=== PATIENT | male | born 1940 | race Caucasian/White ===

== ENCOUNTER 2017-11-27 17:05 | Inpatient (IN) | payer MEDICARE, BC ==
[~2017-11-27] VITALS: Ht 172.7 cm; Wt 68.8 kg
[~2017-11-27 17:05] MED LIST: ALPR1 PO; ASPI81EC; ASPI81EC PO; ATOR80 PO; CHOL10002 UD; CLON.5; CLON.5 PO; CLON1 PO; CLOP75 PO; CRUTCH2 USE; CRUTCH4 USE; DOCU100 PO; DULO30; DULO60 PO; FAMO20 PO; HYDACE5 PO; HYDMOR2 PO; LANS30EC; LISI10; LISI20 PO; LOSA50 PO; MAGOXI400 PO; METO50ER PO; MINO100 PO; NITR.4SL SL; OMEP40CA12 PO; POLY17UD; PROACE100 PO; SPIHYD; TAMS.4ER; TELM40; TESTOSTERONE INJ; TESTOSTERONE INJECTI; TRAZ50 PO; TRIAZOLAM PO; VENL75ER; ZOLP10; [UNRECOGNIZED DRUG - OTHER]
[2017-11-27 19:17] LABS: BASOPHILS ABSOLUTE AUTO 0.03 K/mm3 (0.00-0.23); BASOPHILS PERCENT AUTO 0 % (0-2); EOSINOPHILS ABSOLUTE AUTO 0.08 K/mm3 (0.00-0.68); EOSINOPHILS PERCENT AUTO 1 % (0-6); Hematocrit 41.2 % (37.0-53.0); Hemoglobin 13.5 g/dL (13.5-17.5); IMMATURE GRAN ABSOLUTE AUTO 0.03 K/mm3 (0.00-0.10); IMMATURE GRAN PERCENT AUTO 0 % (0-1); LYMPHOCYTES ABSOLUTE AUTO 1.63 K/mm3 (0.84-5.20); LYMPHOCYTES PERCENT AUTO 20 % (21-46); MONOCYTES ABSOLUTE AUTO 0.72 K/mm3 (0.16-1.47); MONOCYTES PERCENT AUTO 9 % (4-13); Mean Corpuscular HGB Conc 32.8 g/dL (31.5-36.5); Mean Corpuscular Volume 88 fL (80-100); NEUTROPHILS ABSOLUTE AUTO 5.65 K/mm3 (1.96-9.15); NEUTROPHILS PERCENT AUTO 69 % (41-73); Platelet Count 239 K/mm3 (150-400); RDW Coefficient Variation 13.2 % (11.7-14.2); Red Blood Cell Count 4.66 M/mm3 (4.30-5.90); White Blood Cell Count 8.14 K/mm3 (4.00-11.30)
[2017-11-27 19:33] LABS: Alanine Aminotransfer (ALT/SGP 33 U/L (12-78); Albumin, Blood 3.8 g/dL (3.4-5.0); Albumin/Globulin Ratio 1.2 (0.8-1.8); Alk Phos 89 U/L (50-136); Anion Gap 7 mmol/L (6-16); Aspartate Aminotrans (AST/SGOT 38 U/L (12-37); Bilirubin, Total 0.6 mg/dL (0.1-1.0); Blood Urea Nitrogen 14 mg/dL (8-24); CO2, Blood 28 mmol/L (21-32); Calcium, Blood 8.9 mg/dL (8.5-10.1); Chloride, Blood 101 mmol/L (98-108); Creatinine, Blood 0.82 mg/dL (0.60-1.20); Globulin, Blood 3.1 g/dL (2.2-4.0); Glomerular Filtration Rate >60 (60-); Glucose, Blood 72 mg/dL (70-99); Potassium, Blood 3.8 mmol/L (3.5-5.5); Sodium, Blood 136 mmol/L (136-145); Total Protein, Blood 6.9 g/dL (6.4-8.2)
[2017-11-27 20:17] LABS: International Normalized Ratio 1.04; Prothrombin Time Results 10.8 Sec (9.7-11.5)
[2017-11-27 21:14] LABS: Hematocrit 38.7 % (37.0-53.0); Hemoglobin 12.8 g/dL (13.5-17.5)
[2017-11-28 00:14] LABS: Hematocrit 36.8 % (37.0-53.0)
[2017-11-28] MEDS ORDERED: ASPI81CH PO (01:39)
[2017-11-28] MEDS ORDERED: Prilosec Otc20 MG PO (01:40)
[2017-11-28 03:57] LABS: Hematocrit 33.9 % (37.0-53.0); Hemoglobin 11.3 g/dL (13.5-17.5)
[2017-11-28 09:20] LABS: Hematocrit 34.7 % (37.0-53.0); Hemoglobin 11.4 g/dL (13.5-17.5)
[2017-11-28 14:57] LABS: Hematocrit 34.2 % (37.0-53.0); Hemoglobin 11.2 g/dL (13.5-17.5)
[2017-11-28] MEDS ORDERED: Humalog100 UNIT/3 SC (18:50)
[2017-11-28 20:56] LABS: Hematocrit 30.5 % (37.0-53.0); Hemoglobin 10.1 g/dL (13.5-17.5)
[2017-11-29 06:20] LABS: Hemoglobin 9.5 g/dL (13.5-17.5)
[2017-11-29 09:40] LABS: Hematocrit 32.1 % (37.0-53.0); Hemoglobin 10.4 g/dL (13.5-17.5)
[2017-11-29 11:39] LABS: Hematocrit 31.4 % (37.0-53.0); Hemoglobin 10.1 g/dL (13.5-17.5)
[2017-11-29 16:58] LABS: Hematocrit 31.5 % (37.0-53.0); Hemoglobin 10.3 g/dL (13.5-17.5)
[2017-11-29 22:51] LABS: Hematocrit 32.7 % (37.0-53.0); Hemoglobin 10.7 g/dL (13.5-17.5)
[2017-11-30 05:02] LABS: Hematocrit 28.9 % (37.0-53.0); Hemoglobin 9.4 g/dL (13.5-17.5)
[2017-12-01 05:13] LABS: BASOPHILS ABSOLUTE AUTO 0.02 K/mm3 (0.00-0.23); BASOPHILS PERCENT AUTO 0 % (0-2); EOSINOPHILS ABSOLUTE AUTO 0.12 K/mm3 (0.00-0.68); EOSINOPHILS PERCENT AUTO 2 % (0-6); Hematocrit 29.9 % (37.0-53.0); Hemoglobin 9.8 g/dL (13.5-17.5); IMMATURE GRAN ABSOLUTE AUTO 0.01 K/mm3 (0.00-0.10); IMMATURE GRAN PERCENT AUTO 0 % (0-1); LYMPHOCYTES ABSOLUTE AUTO 1.66 K/mm3 (0.84-5.20); LYMPHOCYTES PERCENT AUTO 30 % (21-46); MONOCYTES ABSOLUTE AUTO 0.68 K/mm3 (0.16-1.47); MONOCYTES PERCENT AUTO 12 % (4-13); Mean Corpuscular HGB 28.8 pg (26.0-34.0); Mean Corpuscular HGB Conc 32.8 g/dL (31.5-36.5); Mean Corpuscular Volume 88 fL (80-100); Mean Platelet Volume 10.9 fL (9.1-12.4); NEUTROPHILS ABSOLUTE AUTO 2.98 K/mm3 (1.96-9.15); NEUTROPHILS PERCENT AUTO 55 % (41-73); Platelet Count 220 K/mm3 (150-400); RDW Coefficient Variation 13.2 % (11.7-14.2); White Blood Cell Count 5.47 K/mm3 (4.00-11.30)
[2017-12-01] MEDS ORDERED: CLOP75 PO (09:54)
[2017-12-01] MEDS ORDERED: DOCU100 (09:55)
[2017-12-01] MEDS ORDERED: LOSA25 PO (09:56)
[2017-12-01] MEDS ORDERED: Depo-Testos200 MG/ML IM (09:57)
[2017-12-01] MEDS ORDERED: Vitamin D2000 UNIT PO (09:58)
[2018-07-04] MEDS ORDERED: Omeprazole20 M1 PO (09:17)
[2018-07-04] MEDS ORDERED: ALLER CLEAR PO (09:17)
[2018-07-04] MEDS ORDERED: MAGOXI400 PO (09:18)
== END 2017-12-01 11:35 | disposition home or self-care (01) | DRG 378 ==
LOC: ER 17:05 → MEDS 17:06 → ICUE 17:06 → MEDS 22:00 → ICUE 23:21 → MEDS 11-29 14:50 → ENPENDDIS 12-01 08:27 → MEDS 12-01 11:35
PROVIDERS: Emergency Medicine; Internal Medicine; Internal Medicine Gastroenterology
PROC: 0DJD8ZZ Inspection of Lower Intestinal Tract, Via Natural or Artificial Opening Endoscopic (ICD-10-PCS; principal; 2017-11-28 17:00)
DX: K57.31 Diverticulosis of large intestine without perforation or abscess with bleeding (principal); I50.30 Unspecified diastolic (congestive) heart failure; I11.0 Hypertensive heart disease with heart failure; I25.10 Atherosclerotic heart disease of native coronary artery without angina pectoris; I25.2 Old myocardial infarction; K64.8 Other hemorrhoids; K21.9 Gastro-esophageal reflux disease without esophagitis; M54.9 Dorsalgia, unspecified; G89.29 Other chronic pain; F41.9 Anxiety disorder, unspecified
CPT/HCPCS: 36415; 80053; 85014; 85018; 85025; 85610; 85730; 86850; 86900; 86901; 93005; 93010; 93798; 99285; C9113; J7030; J7120

== ENCOUNTER → 2019-03-05 | Outpatient (CLI) | payer MEDICARE, BC ==
[~2019-03-05] MED LIST changes: +ALLER CLEAR PO; +ASPI81CH PO; +DOCU100; +Depo-Testos200 MG/ML IM; +Humalog100 UNIT/3 SC; +LOSA25 PO; +Omeprazole20 M1 PO; +Prilosec Otc20 MG PO; +Vitamin D2000 UNIT PO
[2019-03-05 14:24] LABS: Stool Occult Bld Immuno 1 Negative (NEGATIVE)
== END ==
LOC: LAB SHORT 11:28 → LAB 11:28
PROVIDERS: Internal Medicine
DX: Z12.5 Encounter for screening for malignant neoplasm of prostate (principal); N39.0 Urinary tract infection, site not specified
CPT/HCPCS: 82274

== ENCOUNTER 2019-04-26 09:27 | Day surgery (SDC) | payer MEDICARE, BC ==
[~2019-04-26] VITALS: Ht 170.2 cm; Wt 65.1 kg
--- NOTE | 2019-04-26 10:43 | NUR ---
04/26/19 1043 Jasmin Perdomo 11 IV MISS IN RH BY DEVANG VALVE 1 GOOD IV IN RFA BY DEVANG PT TOW
== END 2019-04-26 12:20 | disposition home or self-care (01) ==
LOC: ORSCSDS 09:27
PROVIDERS: Internal Medicine Gastroenterology
PROC: 0DB18ZX Excision of Upper Esophagus, Via Natural or Artificial Opening Endoscopic, Diagnostic (ICD-10-PCS; principal; 2019-04-26 10:45)
PROC: 0D757ZZ Dilation of Esophagus, Via Natural or Artificial Opening (ICD-10-PCS; principal; 2019-04-26 10:45)
PROC: 0DB38ZX Excision of Lower Esophagus, Via Natural or Artificial Opening Endoscopic, Diagnostic (ICD-10-PCS; principal; 2019-04-26 10:45)
DX: R13.10 Dysphagia, unspecified (principal); K44.9 Diaphragmatic hernia without obstruction or gangrene; K22.2 Esophageal obstruction; I10 Essential (primary) hypertension; I25.10 Atherosclerotic heart disease of native coronary artery without angina pectoris; K21.9 Gastro-esophageal reflux disease without esophagitis; Z79.82 Long term (current) use of aspirin; Z79.899 Other long term (current) drug therapy
CPT/HCPCS: 88305; J2250; J2704; J7120

== ENCOUNTER 2019-09-12 10:21 | Emergency (ER) | payer OTHER, MEDICARE, BC ==
[~2019-09-12] VITALS: Ht 172.7 cm; Wt 68.0 kg
[2019-09-12] MEDS ORDERED: aller-tec PO (10:48)
[2019-09-12] MEDS ORDERED: LOSARTAN POTAS100 MG (10:49)
[2019-09-12] MEDS ORDERED: testosterone (10:49)
[2019-09-12] MEDS ORDERED: Hydrochlorothia25 MG (10:50)
[2019-09-12] MEDS ORDERED: Cymbalta60 MG (10:51)
== END 2019-09-12 12:28 | disposition home or self-care (01) ==
LOC: ER 10:21
DX: S90.01XA Contusion of right ankle, initial encounter (principal); X58.XXXA Exposure to other specified factors, initial encounter
CPT/HCPCS: 99283

== ENCOUNTER 2020-05-07 17:27 | Emergency (ER) | payer MEDICARE, BC ==
[~2020-05-07] VITALS: Ht 170.2 cm; Wt 69.4 kg
[~2020-05-07 17:27] MED LIST changes: +Cymbalta60 MG; +Hydrochlorothia25 MG; +LOSARTAN POTAS100 MG; +aller-tec PO; +testosterone
[2020-05-07] MEDS ORDERED: TRAZ50 PO (22:46)
== END 2020-05-07 22:55 | disposition home or self-care (01) ==
LOC: ER 17:27
DX: M25.471 Effusion, right ankle (principal); I10 Essential (primary) hypertension; E78.5 Hyperlipidemia, unspecified; Z79.82 Long term (current) use of aspirin; Z79.899 Other long term (current) drug therapy
CPT/HCPCS: 73610; 93971; 99284-25

== ENCOUNTER → 2021-07-26 | Outpatient (CLI) | payer MEDICARE, BC | LOC: LAB SHORT 11:11 | DX: D48.5 Neoplasm of uncertain behavior of skin (principal) | CPT/HCPCS: 88305 ==

== ENCOUNTER 2022-11-04 15:29 | Emergency (ER) | payer MEDICARE, BC ==
[~2022-11-04] VITALS: Ht 170.2 cm; Wt 68.0 kg
[2022-11-04 16:15] LABS: BASOPHILS ABSOLUTE AUTO 0.03 K/mm3 (0.00-0.23); BASOPHILS PERCENT AUTO 1 % (0-2); EOSINOPHILS ABSOLUTE AUTO 0.08 K/mm3 (0.00-0.68); EOSINOPHILS PERCENT AUTO 2 % (0-6); Hematocrit 40.2 % (37.0-53.0); Hemoglobin 13.7 g/dL (13.5-17.5); IMMATURE GRAN ABSOLUTE AUTO 0.02 K/mm3 (0.00-0.10); IMMATURE GRAN PERCENT AUTO 0 % (0-1); LYMPHOCYTES ABSOLUTE AUTO 1.32 K/mm3 (0.84-5.20); LYMPHOCYTES PERCENT AUTO 24 % (21-46); MONOCYTES ABSOLUTE AUTO 0.63 K/mm3 (0.16-1.47); MONOCYTES PERCENT AUTO 12 % (4-13); Mean Corpuscular HGB 30.7 pg (26.0-34.0); Mean Corpuscular HGB Conc 34.1 g/dL (31.5-36.5); Mean Corpuscular Volume 90 fL (80-100); Mean Platelet Volume 11.2 fL (9.1-12.4); NEUTROPHILS ABSOLUTE AUTO 3.41 K/mm3 (1.96-9.15); NEUTROPHILS PERCENT AUTO 62 % (41-73); Platelet Count 199 K/mm3 (150-400); RDW Coefficient Variation 13.2 % (11.7-14.2); RDW Standard Deviation 43.4 fL (35.1-46.3); Red Blood Cell Count 4.46 M/mm3 (4.30-5.90); White Blood Cell Count 5.49 K/mm3 (4.00-11.30)
[2022-11-04 16:33] LABS: Albumin, Blood 3.7 g/dL (3.4-5.0); Albumin/Globulin Ratio 1.2 (0.8-1.8); Bilirubin, Total 0.6 mg/dL (0.1-1.0); Bun/Creatinine Ratio 18.6 (12.0-20.0); Creatinine, Blood 0.75 mg/dL (0.60-1.20); Potassium, Blood 3.9 mmol/L (3.5-5.5); Total Protein, Blood 6.7 g/dL (6.4-8.2)
== END 2022-11-04 19:55 | disposition home or self-care (01) ==
LOC: ER 15:29
PROVIDERS: Student in an Organized Health Care Education/Training Program
DX: R51.9 Headache, unspecified (principal); E78.5 Hyperlipidemia, unspecified; I10 Essential (primary) hypertension; Z79.899 Other long term (current) drug therapy; Z79.82 Long term (current) use of aspirin
CPT/HCPCS: 36415; 70450; 80053; 85025; A9270; J0780; J1885

== ENCOUNTER 2024-03-07 23:17 | Inpatient (IN) | payer MEDICARE, BC ==
[~2024-03-07] VITALS: Ht 170.2 cm; Wt 64.3 kg
[~2024-03-07 23:17] MED LIST changes: +Amoxicillin500 MG PO; +BACLOFEN5 M5 PO; -Cymbalta60 MG; +Cymbalta60 MG PO; +NAPROXEN500 MG PO; +OMEP20ER PO; -Omeprazole20 M1 PO
[2024-03-08] VITALS (30 sets, daily range): BP systolic 83–154; BP diastolic 53–98
[2024-03-08 00:06] LABS: BASOPHILS ABSOLUTE AUTO 0.05 K/mm3 (0.00-0.23); BASOPHILS PERCENT AUTO 1 % (0-2); EOSINOPHILS ABSOLUTE AUTO 0.21 K/mm3 (0.00-0.68); EOSINOPHILS PERCENT AUTO 2 % (0-6); IMMATURE GRAN ABSOLUTE AUTO 0.08 K/mm3 (0.00-0.10); IMMATURE GRAN PERCENT AUTO 1 % (0-1); LYMPHOCYTES ABSOLUTE AUTO 2.09 K/mm3 (0.84-5.20); LYMPHOCYTES PERCENT AUTO 21 % (21-46); MONOCYTES ABSOLUTE AUTO 1.17 K/mm3 (0.16-1.47); MONOCYTES PERCENT AUTO 12 % (4-13); Mean Corpuscular HGB 28.4 pg (26.0-34.0); Mean Corpuscular HGB Conc 32.4 g/dL (31.5-36.5); Mean Corpuscular Volume 88 fL (80-100); Mean Platelet Volume 10.7 fL (9.1-12.4); NEUTROPHILS ABSOLUTE AUTO 6.56 K/mm3 (1.96-9.15); NEUTROPHILS PERCENT AUTO 65 % (41-73); Platelet Count 342 K/mm3 (150-400); RDW Coefficient Variation 13.2 % (11.7-14.2); RDW Standard Deviation 42.2 fL (35.1-46.3); Red Blood Cell Count 4.22 M/mm3 (4.30-5.90); White Blood Cell Count 10.16 K/mm3 (4.00-11.30)
[2024-03-08 00:48] LABS: Albumin, Blood 3.8 g/dL (3.4-5.0); Bilirubin, Total 0.3 mg/dL (0.1-1.0); Bun/Creatinine Ratio 24.9 (12.0-20.0); Calcium, Blood 8.9 mg/dL (8.5-10.1); Creatinine, Blood 0.76 mg/dL (0.60-1.20); Globulin, Blood 3.7 g/dL (2.2-4.0); Potassium, Blood 4.1 mmol/L (3.5-5.5); Total Protein, Blood 7.5 g/dL (6.4-8.2)
[2024-03-08 01:39] LABS: International Normalized Ratio 0.97; Prothrombin Time Results 10.4 Sec (9.7-11.5)
[2024-03-08 02:12] LABS: Hematocrit 32.2 % (37.0-53.0); Hemoglobin 10.7 g/dL (13.5-17.5)
[2024-03-08] MEDS ORDERED: AMLODIPINE BESYL5 MG PO (02:19)
[2024-03-08] MEDS ORDERED: Ondansetron HCl 2 MG / ML 2ML Vial IV PRN (04:05)
[2024-03-08] MEDS ORDERED: NS 1,000 ML IV SCH ×2 (05:38→11:00)
[2024-03-08 06:42] LABS: Hematocrit 32.8 % (37.0-53.0); Hemoglobin 10.8 g/dL (13.5-17.5)
[2024-03-08] MEDS ORDERED: Baclofen 10 MG Tab PO PRN (06:45)
[2024-03-08] MEDS ORDERED: Nitroglycerin 0.4 MG SUBL SL PRN (06:45)
[2024-03-08] MEDS ORDERED: ClonazePAM 1 MG Tab PO PRN (06:45)
--- NOTE | 2024-03-08 07:13 | NUR ---
0615 Patient arrived from ED via stretcher. Patient is alert and oriented x4. His skin is intact. Pt has no c/o pain. Patient up to bedside commode , had appr. 100 cc dk black stool. He states stool amount is increasing. Pt reminded to sit at bedside to make sure he isnt dizzy before getting up. Pt oriented to call light.
[2024-03-08] MEDS ORDERED: Peg/Electrolytes 4,000 ML BTL PO ONE ×2 (07:40→19:00)
[2024-03-08] MEDS ORDERED: AmLODIPine Besylate 5 MG Tab PO SCH (09:00)
[2024-03-08] MEDS ORDERED: Omeprazole 20 MG CapCR PO SCH (09:00)
[2024-03-08 09:43] LABS: Hematocrit 31.8 % (37.0-53.0); Hemoglobin 10.3 g/dL (13.5-17.5)
[2024-03-08] MEDS ORDERED: ALBU90OI INH (09:56)
[2024-03-08 10:34] LABS: SARS-Cov-2 (COVID-19) PCR, MMC NEGATIVE (NEGATIVE)
--- NOTE | 2024-03-08 10:56 | NUR ---
ASSUMED CARE OF PATIENT AT SHIFT CHANGE. ORDERS WERE PLACED FOR PATIENT TO START GOLYTELY; PATIENT IS REFUSING DUE TO EXPRESSING CONCERNS WITH A GENERAL SURGEON DOING THE PROCEDURE AND NOT A DIRECTOR CLIENT SERVICES. PATIENT SHARES THAT HE HAS AN EXTENSIVE HISTORY WITH COMPLICATIONS WITH GI BLEEDING AND PROCEDURES. HE SAID 1X MONTH AGO WHEN HE WAS UP AT [facility] HE CODED DURING THE PROCEDURE AND LOST A LOT OF BLOOD DUE TO HIS ACTIVE BLEED. HE REQUEST TO PLEASE SPEAK WITH A DOCTOR PRIOR TO MOVING FORWARD. ([phone]) DR. RM CONTACTED NO ANSWER LMOM; DR. RANGEL CALLED NOTIFIED. HE CAME AND SPOKE WITH PATIENT AND DISCUSSED PLAN. PLAN IS TO MOVE PATIENT TO PCU AND WORKING ON [place] TRANSFER.
--- NOTE | 2024-03-08 12:09 | NUR ---
REPORT RECIEVED FROM [facility] CESAR RN AT [id number]
--- NOTE | 2024-03-08 12:18 | NUR ---
REPORT GIVEN TO ANGELICA ARELLANO IN PCU FOR IN HOUSE TRANSFER ON PATIENT.
[2024-03-08 12:26] LABS: BASOPHILS ABSOLUTE AUTO 0.02 K/mm3 (0.00-0.23); BASOPHILS PERCENT AUTO 0 % (0-2); EOSINOPHILS ABSOLUTE AUTO 0.01 K/mm3 (0.00-0.68); EOSINOPHILS PERCENT AUTO 0 % (0-6); Hematocrit 28.1 % (37.0-53.0); Hemoglobin 9.2 g/dL (13.5-17.5); IMMATURE GRAN ABSOLUTE AUTO 0.06 K/mm3 (0.00-0.10); IMMATURE GRAN PERCENT AUTO 1 % (0-1); LYMPHOCYTES ABSOLUTE AUTO 0.74 K/mm3 (0.84-5.20); LYMPHOCYTES PERCENT AUTO 6 % (21-46); MONOCYTES ABSOLUTE AUTO 0.86 K/mm3 (0.16-1.47); MONOCYTES PERCENT AUTO 7 % (4-13); Mean Corpuscular HGB 28.9 pg (26.0-34.0); Mean Corpuscular HGB Conc 32.7 g/dL (31.5-36.5); Mean Corpuscular Volume 88 fL (80-100); NEUTROPHILS ABSOLUTE AUTO 10.28 K/mm3 (1.96-9.15); NEUTROPHILS PERCENT AUTO 86 % (41-73); Platelet Count 317 K/mm3 (150-400); RDW Coefficient Variation 13.3 % (11.7-14.2); RDW Standard Deviation 43.2 fL (35.1-46.3); Red Blood Cell Count 3.18 M/mm3 (4.30-5.90); White Blood Cell Count 11.97 K/mm3 (4.00-11.30)
--- NOTE | 2024-03-08 12:50 | NUR ---
ASSUMPTION OF CARE ASSUMED CARE OF PT AT THIS TIME. PT IS RECEIVING NS 100ML/HR. 1 UNIT PRBCS STARTED. PT IS A&OX4. HE IS ABLE TO RECALL BEGINNING TO FEEL "DIZZY/LIGHTHEADED" WHILE ON THE BEDSIDE COMMODE. HE STS HE WAS NOT EXCESSIVELY PUSHING. HE REMEMBERS MULTIPLE PEOPLE COMING INTO HIS ROOM AND ASSISTING HIM BACK TO BED. HE STS HE STILL FEELS "FUZZY" AND "A LITTLE CONFUSED" BUT ABLE TO ANSWER QUESTIONS APPROPRIATELY. HE IS ON BEDREST FOR NOW. MAKES PURPOSEFUL MOVEMENTS WITH ALL EXTREMITIES. LUNGS ARE CLEAR THROUGHOUT AND ON RA. NSR ON MONITOR WITH RATE IN 90S. BP STABLE WITH MAP >65. ABDOMEN MILDLY DISTENDED, FIRM AND TENDER IN THE LOWER QUADRANTS. HE DENIES NEED TO VOID AT THIS TIME. BED IN LOW POSITION, CALL LIGHT WITHIN REACH. DR RM AND DR RANGEL ROUNDED ON PT AND UPDATED. OFFICE PROFESSIONAL AT BEDSIDE.
[2024-03-08 12:51] LABS: Albumin, Blood 3.1 g/dL (3.4-5.0); Albumin/Globulin Ratio 1.1 (0.8-1.8); Bilirubin, Total 0.2 mg/dL (0.1-1.0); Bun/Creatinine Ratio 21.7 (12.0-20.0); Creatinine, Blood 0.83 mg/dL (0.60-1.20); Globulin, Blood 2.9 g/dL (2.2-4.0); Potassium, Blood 4.2 mmol/L (3.5-5.5)
--- NOTE | 2024-03-08 12:53 | NUR ---
AT [address] RANGEL PATIENT WAS EXPRESSING DIZZINESS WHILE USING THE RESTROOM (BEDSIDE COMMODE) CLAIRE REQUEST THAT PATIENT'S FLUIDS BE CHANGED TO A BOLUS; CURRENT NORMAL SALINE CHANGED FROM 100ML/HR TO 999ML/HR 500ML BOLUS. PATIENT BECOMING PALE AND VOICES HE DOESN'T FEEL WELL AND THAT HE IS OUT OF IT. A RAPID RESPONSE WAS CALLED. AT THIS TIME PATIENT'S EYS ROLLED BACK, BECAME DIAPHORETIC, AND LOST CONCIOUSNESS WHILE ON THE COMMODE; PATIENT QUICKLY REGAINED CONCIOUSNESS, BUT STILL OUT OF IT. RAPID RESPONSE TEAM RESPONSED PROMPTLY. PATIENT WAS TRANSAFERRED VIA [facility] AND 2 RN'S TO GET HIM BACK TO BED. VITALS OBTAINED. PATIENT REGAINED ALERTNESS AND ORIENTATION; STATING "WHAT HAPPENED" HE RECALLS THE EVENT PRIOR TO LOSSING CONCIOUSNESS AND DURING RAPID RESPONSE WAS ABLE TO CONTINUE ALERTNESS AND HOLD A CONVERSATION. VITALS STABLE. PATIENT TRANSFERRED TO ICU 13 TO RAPID REPONSE EILEEN COOK.
[2024-03-08] MEDS ORDERED: NS 250 ML IV PRN (12:55)
--- NOTE | 2024-03-08 13:18 | NUR ---
"Spiritual Care Support | Rapid Response Responded to rapid response call. When Pt. is stabilized, this designer architect sought to support the spouse who was at bedside in the room. Pt. is responsive and recognized this designer architect from a community event. Establish rapport, and asist spouse as the Pt. is transferred to ICU. After Pt. is settled in room more life review is facilitated. Prayed with Pt. Both Pt. and spouse verbalize gratitude for the spiritual care visit and welcome this designer architect to return."
[2024-03-08] MEDS ORDERED: Acetaminophen 325 MG TABLET PO PRN (16:15)
[2024-03-08 16:22] LABS: Hematocrit 28.6 % (37.0-53.0); Hemoglobin 9.4 g/dL (13.5-17.5)
[2024-03-08] MEDS ORDERED: Pantoprazole Sodium 40 MG Injection IV SCH (16:30)
[2024-03-08 17:59] LABS: Hematocrit 27.8 % (37.0-53.0); Hemoglobin 9.2 g/dL (13.5-17.5)
--- NOTE | 2024-03-08 18:48 | NUR ---
SHIFT SUMMARY/TRANSFER PT RECEIVING NS 100ML/HR. HE RECEIVED 1 UNIT PRBCS. HE REMAINS A&OX4. MAKES PURPOSEFUL MOVEMENTS WITH ALL EXTREMITIES AND ASSISTS WITH CARE AND REPOSITIONING ABLE. CURRENTLY ON BEDREST. LUNGS ARE CLEAR, ON RA WITH SPO2 >95%. NSR ON MONITOR WITH RATE IN 80S-90S. BP STABLE. ABD REMAINS MILDLY DISTENDED AND FIRM. TENDER IN LOWER QUADRANTS. PT HAS HAD MULTIPLE MEDIUM MAROON JELLY BMS. PT VOIDED YELLOW URINE WITHOUT DIFFICULTY. BED IN LOW POSITION, CALL LIGHT WITHIN REACH. TRANSFER PT HAS BEEN ACCEPTED AT [facility]. ROOM [id number] REPORT CALLED TO PAVAN ARELLANO AT 1845. [phone]
--- NOTE | 2024-03-08 20:19 | NUR ---
ASSUMPTION OF CARE/TRANSFER: ASSUMED CARE OF PT AT 1900. PT HERE WITH GI BLEED AND IS GETTING READY FOR GROUND TRANSPORT TO [facility]. PT A&O X 4, PLEASANT AND COOPERATIVE WITH CARE. PT C/O FUZZINESS AND GENERALIZED WEAKNESS AT THIS TIME. PT IS ON BEDREST AT THIS TIME. CURRENTLY ON RA, LUNG SOUNDS CLEAR T/O AND DENIES SOB OR CHEST PAIN/PRESSURE. SR ON MONITOR WITH HR 90'S, SBP 140'S. ABD DISTENDED, SLIGHTLY FIRM BUT NOT PAINFUL TO PALPATION. PT HAS NO OTHER COMPLAINTS. PT HAS BEEN STARTED ON GOLYTELY AND HAS HAD ABOUT 3 CUPS. PT PLACED ON BEDPAN AT START OF SHIFT AND MAROON, JELLY-LIKE STOOL NOTED. BED LOWERED, CALL LIGHT IN REACH.
--- NOTE | 2024-03-08 20:35 | NUR ---
PT LEFT WITH OMID GARRISON VIA CK @ 2033. ALL OF PT'S BELONGINGS SENT WITH PT.
[2024-03-08] MEDS ORDERED: TraZODone HCl 50 MG Tab PO SCH (21:00)
== END 2024-03-08 20:35 | disposition short-term general hospital (02) | DRG 378 ==
LOC: ER 23:17 → ICUE 23:18 → MEDS 23:18 → ICUE 03-08 12:53
PROVIDERS: Emergency Medicine; Internal Medicine; ADMIT Internal Medicine
PROC: 30233N1 Transfusion of Nonautologous Red Blood Cells into Peripheral Vein, Percutaneous Approach (ICD-10-PCS; principal; 2024-03-08)
DX: K57.31 Diverticulosis of large intestine without perforation or abscess with bleeding (principal); D62 Acute posthemorrhagic anemia; I50.32 Chronic diastolic (congestive) heart failure; G37.3 Acute transverse myelitis in demyelinating disease of central nervous system; K55.21 Angiodysplasia of colon with hemorrhage; K52.9 Noninfective gastroenteritis and colitis, unspecified; I25.10 Atherosclerotic heart disease of native coronary artery without angina pectoris; I11.0 Hypertensive heart disease with heart failure; E86.0 Dehydration; E78.5 Hyperlipidemia, unspecified; Z88.5 Allergy status to narcotic agent; Z95.5 Presence of coronary angioplasty implant and graft; Z79.82 Long term (current) use of aspirin; I25.2 Old myocardial infarction; Z95.1 Presence of aortocoronary bypass graft; Z79.1 Long term (current) use of non-steroidal anti-inflammatories (NSAID)
CPT/HCPCS: 36415; 36430; 74174; 80053; 82947; 83880; 85014; 85018; 85025; 85610; 85730; 86850; 86900; 86901; 86923; 93005; 93010; 99285-25; A9270; C9113; G0378; J7030; J7050; P9016; Q9967; U0002

== ENCOUNTER 2024-03-16 13:09 | Emergency (ER) | payer MEDICARE, BC ==
[~2024-03-16] VITALS: Ht 170.2 cm; Wt 68.0 kg
[~2024-03-16 13:09] MED LIST changes: +ALBU90OI INH; +AMLODIPINE BESYL5 MG PO
[2024-03-16 14:48] LABS: BASOPHILS ABSOLUTE AUTO 0.05 K/mm3 (0.00-0.23); BASOPHILS PERCENT AUTO 1 % (0-2); EOSINOPHILS ABSOLUTE AUTO 0.07 K/mm3 (0.00-0.68); EOSINOPHILS PERCENT AUTO 1 % (0-6); IMMATURE GRAN ABSOLUTE AUTO 0.01 K/mm3 (0.00-0.10); IMMATURE GRAN PERCENT AUTO 0 % (0-1); LYMPHOCYTES ABSOLUTE AUTO 1.34 K/mm3 (0.84-5.20); LYMPHOCYTES PERCENT AUTO 18 % (21-46); MONOCYTES ABSOLUTE AUTO 0.89 K/mm3 (0.16-1.47); MONOCYTES PERCENT AUTO 12 % (4-13); Mean Corpuscular HGB 28.6 pg (26.0-34.0); Mean Corpuscular Volume 89 fL (80-100); Mean Platelet Volume 9.8 fL (9.1-12.4); NEUTROPHILS ABSOLUTE AUTO 4.98 K/mm3 (1.96-9.15); NEUTROPHILS PERCENT AUTO 68 % (41-73); Platelet Count 379 K/mm3 (150-400); RDW Coefficient Variation 14.5 % (11.7-14.2); RDW Standard Deviation 47.1 fL (35.1-46.3); White Blood Cell Count 7.34 K/mm3 (4.00-11.30)
[2024-03-16 15:20] LABS: Albumin, Blood 3.1 g/dL (3.4-5.0); Albumin/Globulin Ratio 0.9 (0.8-1.8); Bilirubin, Total 0.2 mg/dL (0.1-1.0); Bun/Creatinine Ratio 18.6 (12.0-20.0); Calcium, Blood 8.4 mg/dL (8.5-10.1); Creatinine, Blood 0.81 mg/dL (0.60-1.20); Globulin, Blood 3.5 g/dL (2.2-4.0); Potassium, Blood 3.9 mmol/L (3.5-5.5); Total Protein, Blood 6.6 g/dL (6.4-8.2)
[2024-03-16 21:15] VITALS: BP 147/67
== END 2024-03-16 21:40 | disposition home or self-care (01) ==
LOC: ER 13:09
PROVIDERS: Student in an Organized Health Care Education/Training Program
DX: D64.9 Anemia, unspecified (principal); I25.10 Atherosclerotic heart disease of native coronary artery without angina pectoris; I10 Essential (primary) hypertension; E78.5 Hyperlipidemia, unspecified; Z79.899 Other long term (current) drug therapy; Z79.1 Long term (current) use of non-steroidal anti-inflammatories (NSAID); Z88.5 Allergy status to narcotic agent
CPT/HCPCS: 80053; 84484; 85025; 86850; 86870; 86900; 86901; 93005; 93010; 99285-25

== ENCOUNTER 2024-11-13 14:29 | Emergency (ER) | payer MEDICARE, BC ==
[~2024-11-13] VITALS: Ht 170.2 cm; Wt 66.2 kg
[2024-11-13 15:14] LABS: BASOPHILS ABSOLUTE AUTO 0.03 K/mm3 (0.00-0.23); BASOPHILS PERCENT AUTO 0 % (0-2); EOSINOPHILS ABSOLUTE AUTO 0.19 K/mm3 (0.00-0.68); EOSINOPHILS PERCENT AUTO 3 % (0-6); Hematocrit 43.4 % (37.0-53.0); Hemoglobin 14.9 g/dL (13.5-17.5); IMMATURE GRAN ABSOLUTE AUTO 0.03 K/mm3 (0.00-0.10); IMMATURE GRAN PERCENT AUTO 0 % (0-1); LYMPHOCYTES ABSOLUTE AUTO 1.68 K/mm3 (0.84-5.20); LYMPHOCYTES PERCENT AUTO 24 % (21-46); MONOCYTES ABSOLUTE AUTO 0.81 K/mm3 (0.16-1.47); MONOCYTES PERCENT AUTO 11 % (4-13); Mean Corpuscular HGB 29.7 pg (26.0-34.0); Mean Corpuscular HGB Conc 34.3 g/dL (31.5-36.5); Mean Corpuscular Volume 87 fL (80-100); Mean Platelet Volume 10.8 fL (9.1-12.4); NEUTROPHILS ABSOLUTE AUTO 4.34 K/mm3 (1.96-9.15); NEUTROPHILS PERCENT AUTO 61 % (41-73); Platelet Count 244 K/mm3 (150-400); RDW Coefficient Variation 14.2 % (11.7-14.2); RDW Standard Deviation 44.3 fL (35.1-46.3); Red Blood Cell Count 5.02 M/mm3 (4.30-5.90); White Blood Cell Count 7.08 K/mm3 (4.00-11.30)
[2024-11-13 15:49] LABS: Albumin, Blood 3.5 g/dL (3.4-5.0); Albumin/Globulin Ratio 0.9 (0.8-1.8); Bilirubin, Total 0.3 mg/dL (0.1-1.0); Bun/Creatinine Ratio 22.8 (12.0-20.0); Calcium, Blood 9.2 mg/dL (8.5-10.1); Creatinine, Blood 0.75 mg/dL (0.60-1.20); Globulin, Blood 3.8 g/dL (2.2-4.0); Magnesium, Blood 1.8 mg/dL (1.6-2.4); Potassium, Blood 3.9 mmol/L (3.5-5.5); Total Protein, Blood 7.3 g/dL (6.4-8.2)
[2024-11-13 16:06] VITALS: BP 129/62
[2024-11-13 16:19] LABS: Influenza A, PCR NEGATIVE (NEGATIVE); Influenza B, PCR NEGATIVE (NEGATIVE); Resp Syncytial Virus, PCR NEGATIVE (NEGATIVE); SARS-Cov-2 (COVID-19) PCR, MMC NEGATIVE (NEGATIVE)
== END 2024-11-13 17:24 | disposition other institution (70) ==
LOC: ER 14:29
PROVIDERS: Student in an Organized Health Care Education/Training Program
DX: J40 Bronchitis, not specified as acute or chronic (principal); R07.9 Chest pain, unspecified; E87.1 Hypo-osmolality and hyponatremia; I10 Essential (primary) hypertension; I25.2 Old myocardial infarction; I25.10 Atherosclerotic heart disease of native coronary artery without angina pectoris; E78.5 Hyperlipidemia, unspecified; Z88.5 Allergy status to narcotic agent; Z79.899 Other long term (current) drug therapy
CPT/HCPCS: 0241U; 71045; 80053; 83735; 84484; 85025; 93005; 93010; 99284-25

== ENCOUNTER 2025-03-26 14:05 | Emergency (ER) | payer MEDICARE, BC ==
[~2025-03-26] VITALS: Ht 170.2 cm; Wt 63.5 kg
[2025-03-26 15:10] LABS: BASOPHILS ABSOLUTE AUTO 0.02 K/mm3 (0.00-0.23); BASOPHILS PERCENT AUTO 0 % (0-2); EOSINOPHILS ABSOLUTE AUTO 0.05 K/mm3 (0.00-0.68); EOSINOPHILS PERCENT AUTO 1 % (0-6); Hematocrit 45.0 % (37.0-53.0); Hemoglobin 15.8 g/dL (13.5-17.5); IMMATURE GRAN ABSOLUTE AUTO 0.03 K/mm3 (0.00-0.10); IMMATURE GRAN PERCENT AUTO 0 % (0-1); LYMPHOCYTES ABSOLUTE AUTO 1.23 K/mm3 (0.84-5.20); LYMPHOCYTES PERCENT AUTO 17 % (21-46); MONOCYTES ABSOLUTE AUTO 0.72 K/mm3 (0.16-1.47); MONOCYTES PERCENT AUTO 10 % (4-13); Mean Corpuscular HGB Conc 35.1 g/dL (31.5-36.5); Mean Corpuscular Volume 92 fL (80-100); NEUTROPHILS ABSOLUTE AUTO 5.28 K/mm3 (1.96-9.15); NEUTROPHILS PERCENT AUTO 72 % (41-73); NRBC ABSOLUTE 0.00 K/mm3 (0.00-0.02); NRBC Auto 0.0 /100 WBC (0.0-0.2); Platelet Count 240 K/mm3 (150-400); RDW Coefficient Variation 13.0 % (11.7-14.2); RDW Standard Deviation 43.7 fL (35.1-46.3)
[2025-03-26 16:03] LABS: Alanine Aminotransfer (ALT/SGP 34.0 U/L (12-78); Albumin, Blood 3.6 g/dL (3.4-5.0); Albumin/Globulin Ratio 1.1 (0.8-1.8); Anion Gap 8.0 mmol/L (3-11); Aspartate Aminotrans (AST/SGOT 34.0 U/L (12-37); Bilirubin, Total 0.7 mg/dL (0.1-1.0); Blood Urea Nitrogen 16.0 mg/dL (8-24); CO2, Blood 30.0 mmol/L (21-32); Calcium, Blood 9.3 mg/dL (8.5-10.1); Chloride, Blood 97.0 mmol/L (98-108); Creatinine, Blood 0.89 mg/dL (0.60-1.20); Globulin, Blood 3.4 g/dL (2.2-4.0); Glucose, Blood 96.0 mg/dL (70-99); Potassium, Blood 3.5 mmol/L (3.5-5.5); Sodium, Blood 131.0 mmol/L (136-145); Thyroid Stimulating Hormone 1.11 uIU/mL (0.360-4.800); Total Protein, Blood 7.0 g/dL (6.4-8.2)
[2025-03-26 16:55] LABS: Source, Urine Clean Catch
[2025-03-26 16:57] LABS: Bilirubin, Urine Neg (Neg); Color, Urine Yellow (P-Yellow); Glucose Qualitative, Urine Neg (Neg); Ketones, Urine Neg (Neg); Leukocyte Esterase, Urine Neg (Neg); Protein, Urine 1+ (Neg); Specific Gravity, Urine 1.010 (1.003-1.022); Urobilinogen, Urine NORM (Normal)
[2025-03-26 18:00] VITALS: BP 142/80
== END 2025-03-26 18:32 | disposition home or self-care (01) ==
LOC: ER 14:05
PROVIDERS: Emergency Medicine
DX: R53.1 Weakness (principal); R41.0 Disorientation, unspecified; I10 Essential (primary) hypertension; I25.2 Old myocardial infarction; E78.5 Hyperlipidemia, unspecified; I25.10 Atherosclerotic heart disease of native coronary artery without angina pectoris; Z95.1 Presence of aortocoronary bypass graft; Z95.5 Presence of coronary angioplasty implant and graft; Z88.5 Allergy status to narcotic agent; Z79.899 Other long term (current) drug therapy
CPT/HCPCS: 70450; 71045; 80053; 84439; 84443; 85025; 93005; 93010; 99285-25